=== PATIENT | female | born 1975 | race Caucasian/White ===

== ENCOUNTER 2021-11-11 15:09 | Outpatient (CLI) | payer OTHER, SELFPAY ==
--- NOTE | 2021-11-11 15:20 | CRLHL7_ITS ---
For Patients: As a result of the Cures Act, medical imaging exams and procedure reports are released immediately into your electronic medical record. You may view this report before your referring provider. If you have questions, please contact your health care provider. BILATERAL SCREENING MAMMOGRAM WITH COMPUTER-AIDED DETECTION AND TOMOSYNTHESIS TECHNIQUE: CC and MLO views were obtained. These mammographic images have been obtained using full-field digital technique. These mammographic images were interpreted with the benefit of computer-aided detection. Breast Tomosynthesis was used in this interpretation. COMPARISON FILM: 10/30/20, 10/01/19, 11/03/17. FINDINGS: The breasts are heterogeneously dense, which may obscure small masses IMPRESSION: There is no radiographic evidence for malignancy. ASSESSMENT: BI-RADS Category 1: Negative RECOMMENDATION: Routine screening mammogram in 1 year. A lay language report of this examination will be provided to the patient. Anoop Malone M.D. Diagnostic Radiologist [email or web address] OSEI/[email or web address] / be/Dictated by: Anoop Malone MD @ 11/12/2021 8:18:00 AM (Electronically Signed)
== END 2021-11-11 15:10 | disposition home or self-care (01) ==
LOC: MAMMO 15:10
PROVIDERS: PCP Internal Medicine; Visit Provider Registered Nurse
DX: Z12.31 Encounter for screening mammogram for malignant neoplasm of breast (principal); R92.2 Inconclusive mammogram
CPT/HCPCS: 77063; 77067

== ENCOUNTER 2021-11-23 10:40 | Outpatient (CLI) | payer OTHER, SELFPAY ==
--- NOTE | 2021-11-23 12:26 | W.ANESCHARGE ---
Anesthesia Charges Start Date/Time Anesthesia Start Date: 11/23/21 Anesthesia Start Time: 11:45 Stop Date/Time Anesthesia Stop Date: 11/23/21 Anesthesia Stop Time: 12:26 Summary Emergency: No
== END 2021-11-23 10:41 | disposition home or self-care (01) ==
LOC: OP CLINIC 10:41
PROVIDERS: PCP Internal Medicine; Visit Provider Surgery
DX: R19.5 Other fecal abnormalities (principal); K63.5 Polyp of colon; K62.1 Rectal polyp
CPT/HCPCS: 00811; 45385; 88305; J2704

== ENCOUNTER 2022-04-20 07:33 | Outpatient (CLI) | payer OTHER, SELFPAY | END 2022-04-20 07:34 | disposition home or self-care (01) | LOC: NFLDREF 04-22 13:43 | PROVIDERS: PCP Internal Medicine; Referring Provider Internal Medicine; Visit Provider Internal Medicine | DX: Z13.6 Encounter for screening for cardiovascular disorders (principal) | CPT/HCPCS: 80061 ==

== ENCOUNTER 2022-06-15 08:02 | Outpatient (CLI) | payer OTHER, SELFPAY ==
--- NOTE | 2022-06-15 08:15 | CRLHL7_ITS ---
For Patients: As a result of the Century Cures Act, medical imaging exams and procedure reports are released immediately into your electronic medical record. You may view this report before your referring provider. If you have questions, please contact your health care provider. Technique: Double-contrast upper GI performed after the uneventful administration of effervescent crystals and thick barium followed by thin barium. Fluoroscopy time 1 minute 26 seconds. Indication: Gastroesophageal REFLUX DISEASE Comparison: None. Findings: Swallowing mechanism: Normal. Esophageal motility: Slightly diminished. Gastroesophageal reflux: None. Hernia: None. Esophagus, stomach and duodenal bulb mucosa: Normal mucosa. No stricture or mass. There is the slight suspicion of decreased gastric emptying. Impression: No reflux observed. Slightly diminished esophageal and gastric motility. One could consider a gastric emptying study for further evaluation. Dictated by Anoop Malone MD @ 06/15/2022 9:45:15 AM (Electronically Signed)
== END 2022-06-15 08:03 | disposition home or self-care (01) ==
LOC: RAD 08:03
PROVIDERS: PCP Internal Medicine; Visit Provider Internal Medicine Gastroenterology
DX: K21.9 Gastro-esophageal reflux disease without esophagitis (principal); R07.0 Pain in throat
CPT/HCPCS: 74246

== ENCOUNTER 2022-11-16 07:30 | Outpatient (CLI) | payer OTHER, SELFPAY ==
--- NOTE | 2022-11-16 07:45 | CRLHL7_ITS ---
For Patients: As a result of the Century Cures Act, medical imaging exams and procedure reports are released immediately into your electronic medical record. You may view this report before your referring provider. If you have questions, please contact your health care provider. BILATERAL SCREENING MAMMOGRAM WITH COMPUTER-AIDED DETECTION AND TOMOSYNTHESIS TECHNIQUE: CC and MLO views were obtained. These mammographic images have been obtained using full-field digital technique. These mammographic images were interpreted with the benefit of computer-aided detection. Breast Tomosynthesis was used in this interpretation. COMPARISON FILM: 11/11/21, 10/30/20, 10/01/19. FINDINGS: The breasts are heterogeneously dense, which may obscure small masses IMPRESSION: There is no radiographic evidence for malignancy. ASSESSMENT: BI-RADS Category 1: Negative RECOMMENDATION: Routine screening mammogram in 1 year. A lay language report of this examination will be provided to the patient. Anoop Malone M.D. Diagnostic Radiologist [email or web address] RODRI/Dictated by: Anoop Malone MD @ 11/16/2022 8:27:00 AM (Electronically Signed)
== END 2022-11-16 07:31 | disposition home or self-care (01) ==
PROVIDERS: PCP Internal Medicine; Visit Provider Internal Medicine
DX: Z12.31 Encounter for screening mammogram for malignant neoplasm of breast (principal); R92.2 Inconclusive mammogram
CPT/HCPCS: 77063; 77067

== ENCOUNTER 2023-04-25 07:40 | Outpatient (CLI) | payer OTHER, SELFPAY | END 2023-04-25 07:41 | disposition home or self-care (01) | LOC: NFLDREF 04-26 07:13 | PROVIDERS: PCP Internal Medicine; Referring Provider Internal Medicine; Visit Provider Internal Medicine | DX: Z13.220 Encounter for screening for lipoid disorders (principal); Z13.1 Encounter for screening for diabetes mellitus; Z13.29 Encounter for screening for other suspected endocrine disorder | CPT/HCPCS: 80061; 82947; 84443 ==

== ENCOUNTER 2023-05-09 07:55 | Outpatient (CLI) | payer OTHER, SELFPAY ==
--- NOTE | 2023-05-09 08:54 | W.ANESCHARGE ---
Anesthesia Charges Start Date/Time Anesthesia Start Date: 05/09/23 Anesthesia Start Time: 09:11 Stop Date/Time Anesthesia Stop Date: 05/09/23 Anesthesia Stop Time: 09:33
--- NOTE | 2023-05-09 09:39 | W.ANESCHARGE ---
Anesthesia Charges Start Date/Time Anesthesia Start Date: 05/09/23 Anesthesia Start Time: 09:11 Stop Date/Time Anesthesia Stop Date: 05/09/23 Anesthesia Stop Time: 09:33
== END 2023-05-09 07:56 | disposition home or self-care (01) ==
LOC: OP CLINIC 07:56
PROVIDERS: PCP Internal Medicine; Visit Provider Surgery
DX: R19.8 Other specified symptoms and signs involving the digestive system and abdomen (principal)
CPT/HCPCS: 00731; 43239; 88305; 94640; J1100; J2704

== ENCOUNTER 2023-11-20 14:53 | Outpatient (CLI) | payer OTHER, SELFPAY ==
--- OUTSIDE RECORDS SUMMARY | 2023-11-20 14:56 | XMS_ITS | Clinical Summary ---
Author Organization [employer] [facility] Address [place], [place] [address] Care Team Providers Care Shake Backboard Notcher Name Role Phone Kandis Weiner MD Primary Care Provider [phone]- [phone] Allergies Active Allergy Reactions Criticality Noted Date Comments Codeine Vomiting 06/10/2022 Medications Medication Sig Dispensed Refills Start Date End Date Status famotidine (PEPCID) 20 mg tablet Take 1 Tablet (20 mg) by mouth two times daily. 0 06/10/2022 Active albuterol HFA (PRO-AIR; VENTOLIN; PROVENTIL) 90 mcg/actuation inhaler INHALE 2 PUFFS BY MOUTH EVERY 4 HOURS NEEDED FOR ASTHMA. 04/27/2022 Active Flovent HFA 110 mcg/actuation inhaler Inhale 2 Puffs by mouth two times daily. 04/27/2022 Active Sprintec 0.25-35 mg-mcg tablet Take 1 Tablet by mouth once daily. 04/19/2022 Active fluticasone propionate (FLOVENT) 110 mcg/Actuation inhaler Inhale by mouth two times daily. 12 g 06/10/2022 Active fexofenadine (REINA) 180 mg tablet Take 180 mg by mouth once daily with a meal. Do not crush or chew. 0 06/10/2022 Active multivitamin capsule Take 1 Capsule by mouth once daily. 0 06/10/2022 Active omeprazole (PRILOSEC) 40 mg Delayed-Release capsuleIndications:Ga stroesophageal reflux disease, unspecified whether esophagitis present,Throat pain Take 1 Capsule (40 mg) by mouth once daily. 30 Capsule 11 06/10/2022 Active Social History Tobacco Use Types Packs/Day Years Used Date Smoking Tobacco: Never Smokeless Tobacco: Never Tobacco Cessation:Counseling Given: Yes Social Connections Answer Date Recorded Frequency of Communication with Friends and Fami ly Not on file 06/10/2022 Sex and Gender Information Value Date Recorded Sex Assigned at Not on file Gender Identity Not on file Sexual Orientation Not on file Obstetrics History Last Filed Vital Signs Vital Sign Reading Time Taken Comments Blood Pressure 133/79 06/10/2022 3:39 PM CDT Pulse 72 06/10/2022 3:39 PM CDT Temperature - - Respiratory Rate - - Oxygen Saturation 98% 06/10/2022 3:39 PM CDT Inhaled Oxygen Concentration - - Weight 71.9 kg (158 lb 9.6 oz) 06/10/2022 3:39 P M CDT Height - - Body Mass Index - - Plan of Treatment Health Maintenance Due Date Last Done Comments Tdap 09/21/1987 Depression screening for age 12+ 1988 HIV for age 15-65 09/21/1991 BMI (ht and wt on same day) for age 18+ 1994 Hepatitis C screening for age 18-79 1994 Tetanus booster 1996 Colonoscopy through age 75 2021 Lipids for age 45-75 2021 Mammogram for age 45-75 2021 COVID-19 vaccine series ( season) 2023 Influenza for age 9-49 10/15/2023 Pap test for age 21-65 05/04/2026 , 05/05/2023, 07/20/2018, Additional history exists Pneumococcal series for age 6-64 Aged Out No longer eligible based on patient's age to complete this topic Procedures Procedure Name Priority Date/Time Associated Diagnosis Comments HPV HIGH RISK Routine 05/05/2023 11:40 AM CDT from Last 3 Months or Most Recently Relevant to Health Maintenance Results * HPV HIGH RISK (05/05/2023 11:40 AM CDT) TYPE 16 Negative Negative 05/10/2023 1:48 PM CDT [facility] TYPE 18 Negative Negative 05/10/2023 1:48 PM CDT [facility] OTHER HIGH RISK TYPES Negative Negative 05/10/2023 1:48 PM CDT [facility] Other (Cervical) 05/05/2023 11:40 AM CDT 05/09/2023 8:24 AM CDT Narrative [facility] - 05/10/2023 1:48 PM CDT HPV types 16, 18, 31, 33, 35, 39, 45, 51, 52, 56, 58, 59, 66 and 68 DNA were undetectable or below the pre-set threshold. Methodology: Ke Stan 4800 HPV Test Teetee Joshi PHOTOGRAPHIC LITHOGRAPHER MICROBIOLOGY [facility] [address] [place] [address], from Last 3 Months or Most Recently Relevant to Health Maintenance Care Teams Shake Backboard Notcher Relationship Specialty Start Date End Date Kandis Weiner MD [address] [place] [address] PCP - General Internal Medicine 06/10/22
--- NOTE | 2023-11-20 15:00 | CRLHL7_ITS ---
For Patients: As a result of the Century Cures Act, medical imaging exams and procedure reports are released immediately into your electronic medical record. You may view this report before your referring provider. If you have questions, please contact your health care provider. BILATERAL SCREENING MAMMOGRAM WITH COMPUTER-AIDED DETECTION AND TOMOSYNTHESIS TECHNIQUE: CC and MLO views were obtained. These mammographic images have been obtained using full-field digital technique. These mammographic images were interpreted with the benefit of computer-aided detection. Breast Tomosynthesis was used in this interpretation. COMPARISON FILM: 11/16/22, 11/11/21, 10/30/20. FINDINGS: The breasts are heterogeneously dense, which may obscure small masses IMPRESSION: There is no radiographic evidence for malignancy. ASSESSMENT: BI-RADS Category 1: Negative RECOMMENDATION: Routine screening mammogram in 1 year. A lay language report of this examination will be provided to the patient. Anoop Malone M.D. Diagnostic Radiologist [email or web address] OSEI/[email or web address] Transcribed: 1:42 p.eliot sepulveda/Dictated by: Anoop Malone MD @ 11/21/2023 10:16:00 AM (Electronically Signed)
== END 2023-11-20 14:54 | disposition home or self-care (01) ==
LOC: MAMMO 14:54
PROVIDERS: PCP Internal Medicine; Visit Provider Internal Medicine
DX: Z12.31 Encounter for screening mammogram for malignant neoplasm of breast (principal); R92.333 Mammographic heterogeneous density, bilateral breasts
CPT/HCPCS: 77063; 77067

== ENCOUNTER 2024-01-08 14:29 | Outpatient (CLI) | payer OTHER, SELFPAY ==
--- OUTSIDE RECORDS SUMMARY | 2024-01-08 14:39 | XMS_ITS | Clinical Summary ---
Author Organization [employer] [facility] Address [place], [place] [address] Care Team Providers Care Photograph Editor Name Role Phone Kandis Weiner MD Primary Care Provider +1- [phone] Allergies Active Allergy Reactions Criticality Noted Date [...] 16 Negative Negative 05/10/2023 1:48 PM CDT [facility] TYPE 18 Negative Negative 05/10/2023 1:48 PM CDT [facility] OTHER HIGH RISK TYPES Negative Negative 05/10/2023 1:48 PM CDT [facility] Other (Cervical) 05/05/2023 11:40 AM CDT 05/09/2023 8:24 AM CDT Narrative [facility] - 05/10/2023 1:48 PM CDT HPV types 16, 18, 31, 33, 35, 39, 45, 51, 52, 56, 58, 59, 66 and 68 DNA were undetectable or below the pre-set threshold. Methodology: Ke Stan 4800 HPV Test Teetee Joshi KETTLE FRY COOK OPERATOR MICROBIOLOGY [facility] [address] [place] [address], from Last 3 Months or Most Recently Relevant to Health Maintenance Care Teams Photograph Editor Relationship Specialty Start Date End Date Kandis Weiner MD [address] [place] [address] PCP - General Internal Medicine 06/10/22
== END 2024-01-08 14:30 | disposition home or self-care (01) ==
PROVIDERS: PCP Internal Medicine; Visit Provider Internal Medicine
DX: L65.9 Nonscarring hair loss, unspecified (principal)
CPT/HCPCS: 82728; 84443

== ENCOUNTER 2024-06-27 10:38 | Outpatient (CLI) | payer OTHER, SELFPAY | END 2024-06-27 10:39 | disposition home or self-care (01) | LOC: NFLDREF 07-04 22:09 | PROVIDERS: PCP Internal Medicine; Referring Provider Internal Medicine; Visit Provider Internal Medicine | DX: R10.9 Unspecified abdominal pain (principal) | CPT/HCPCS: 87086 ==

== ENCOUNTER 2024-06-27 12:44 | Outpatient (CLI) | payer OTHER, SELFPAY ==
--- NOTE | 2024-06-27 13:00 | CRLHL7_ITS ---
For Patients: As a result of the Century Cures Act, medical imaging exams and procedure reports are released immediately into your electronic medical record. You may view this report before your referring provider. If you have questions, please contact your health care provider. INDICATION: ABD PAIN HX STONES TECHNIQUE: A CT volumetric acquisition was performed of the abdomen and pelvis without intravenous contrast. Please note that all CT scans at this facility use dose modulation, iterative reconstruction, and/or weight-based dosing when appropriate to reduce radiation dose to as low as reasonably achievable. COMPARISON: 09/15/2020 FINDINGS: The CT images demonstrate normal aeration of the lung bases. There is no evidence of pleural or pericardial fluid. Within the abdomen the liver appears normal in size and density. The spleen is of normal size. There is no evidence of mass effect or inflammation within the pancreas. The gallbladder and bile ducts appear normal. The adrenal glands have normal morphology. The kidneys are of normal size and there is no evidence of a calculus within either kidney or ureter and there is no evidence of hydronephrosis. The small and large bowel loops appear unremarkable and there are no abnormalities noted within the small bowel mesentery or greater omentum. Small incidental duodenal diverticulum is present. The aorta and IVC appear normal. There is no evidence of retroperitoneal lymphadenopathy. The uterus and ovaries appear normal. 2.4 cm umbilical hernia containing fat is unchanged. Normal appendix. IMPRESSION: Unremarkable CT of the abdomen and pelvis. No evidence of renal, ureteral or bladder stone. Please note that all CT scans at this facility use dose modulation, iterative reconstruction, and/or weight-based dosing when appropriate to reduce radiation dose to as low as reasonably achievable. Dictated by Anoop Malone MD @ 06/28/2024 12:42:09 PM (Electronically Signed)
== END 2024-06-27 12:45 | disposition home or self-care (01) ==
LOC: CT 12:45
PROVIDERS: PCP Internal Medicine; Visit Provider Internal Medicine
DX: R10.9 Unspecified abdominal pain (principal); R91.8 Other nonspecific abnormal finding of lung field; N28.1 Cyst of kidney, acquired
CPT/HCPCS: 74176

== ENCOUNTER 2024-07-01 11:32 | Outpatient (CLI) | payer OTHER, SELFPAY | END 2024-07-01 11:33 | disposition home or self-care (01) | LOC: NFLDREF 11:36 | PROVIDERS: PCP Internal Medicine; Visit Provider Family Medicine | DX: N39.0 Urinary tract infection, site not specified (principal); N20.0 Calculus of kidney; B95.7 Other staphylococcus as the cause of diseases classified elsewhere | CPT/HCPCS: 82365; 87086; 87186 ==

== ENCOUNTER 2024-07-10 13:48 | Outpatient (CLI) | payer OTHER, SELFPAY ==
--- NOTE | 2024-07-10 14:34 | CRLHL7_ITS ---
For Patients: As a result of the Century Cures Act, medical imaging exams and procedure reports are released immediately into your electronic medical record. You may view this report before your referring provider. If you have questions, please contact your health care provider. INDICATION: Unspecified abdominal pain COMPARISON: CT 06/27/2024 TECHNIQUE: Real time fan scale imaging and color Doppler analysis was performed of the right upper quadrant. FINDINGS: The patient`s liver is of normal size and has mildly increased echogenicity. There is a normal appearance of the hepatic IVC and proximal abdominal aorta. There is no evidence of ascites. The gallbladder is of normal size and there is no evidence of intraluminal stones or sludge. The gallbladder wall measures 3 mm in thickness. The common bile duct is of normal size and measures 4 mm in diameter at the level of the kati hepatis. The visualized pancreas appears normal. There is no evidence of a stone or hydronephrosis within the right kidney. The right kidney measures 9.9 cm in length. IMPRESSION: Mild diffuse hepatic steatosis. Remainder unremarkable. Dictated by Anoop Malone MD @ 07/10/2024 4:00:43 PM (Electronically Signed)
== END 2024-07-10 13:49 | disposition home or self-care (01) ==
LOC: US 13:48
PROVIDERS: PCP Internal Medicine; Visit Provider Internal Medicine
DX: R10.9 Unspecified abdominal pain (principal); K76.0 Fatty (change of) liver, not elsewhere classified
CPT/HCPCS: 76705

== ENCOUNTER 2024-07-23 11:46 | Outpatient (CLI) | payer OTHER, SELFPAY ==
--- NOTE | 2024-07-23 12:00 | CRLHL7_ITS ---
For Patients: As a result of the Century Cures Act, medical imaging exams and procedure reports are released immediately into your electronic medical record. You may view this report before your referring provider. If you have questions, please contact your health care provider. INDICATION: unspecified abdominal pain TECHNIQUE: 7.4 mCi Tc-99m Mebrofenin was injected intravenously. Images of the liver, gallbladder and abdomen were obtained for 60 minutes. 1.5 mcg Kinevac was then administered and imaging continued for an additional 50 minutes. COMPARISON: Ultrasound 07/10/2024, CT 06/27/2024 FINDINGS: There is good uptake of activity by the hepatocytes. There is visualization of the biliary tree, gallbladder and small bowel. In response to CCK administration, there is a normal gallbladder ejection fraction of 33 percent. IMPRESSION: 1. Normal study. There is no evidence of acute or chronic cholecystitis. 2. Normal gallbladder ejection fraction of 33 percent. Dictated by Anoop Malone MD @ 07/24/2024 9:49:31 AM (Electronically Signed)
== END 2024-07-23 11:47 | disposition home or self-care (01) ==
LOC: NM 11:47
PROVIDERS: PCP Internal Medicine; Visit Provider Internal Medicine
DX: R10.9 Unspecified abdominal pain (principal)
CPT/HCPCS: 78227; A9537; J2805

== ENCOUNTER 2024-07-30 11:05 | Outpatient (CLI) | payer OTHER, SELFPAY | END 2024-07-30 11:06 | disposition home or self-care (01) | LOC: NFLDREF 11:07 | PROVIDERS: PCP Internal Medicine; Visit Provider Internal Medicine | DX: R10.9 Unspecified abdominal pain (principal) | CPT/HCPCS: 80053 ==

== ENCOUNTER 2024-11-21 14:28 | Outpatient (CLI) | payer OTHER, SELFPAY ==
--- NOTE | 2024-11-21 14:40 | CRLHL7_ITS ---
For Patients: As a result of the Century Cures Act, medical imaging exams and procedure reports are released immediately into your electronic medical record. You may view this report before your referring provider. If you have questions, please contact your health care provider. INDICATION: BILATERAL SCREENING MAMMOGRAM, ASYMPTOMATIC 49 Y/O FEMALE COMPARISON: 11/20/2023, 11/16/2022, 11/11/2022 TECHNIQUE: Digital mammogram in CC and MLO projections including computer-aided detection (CAD) and tomosynthesis. BREAST COMPOSITION: The breasts are heterogeneously dense, which may obscure small masses. FINDINGS: No suspicious findings. ASSESSMENT: BI-RADS 2 Benign RECOMMENDATION: Annual screening mammogram. A lay language report of this examination will be provided to the patient. Dictated by: Anoop Malone MD @ 11/22/2024 09:39:00 (Electronically Signed)
== END 2024-11-21 14:29 | disposition home or self-care (01) ==
LOC: MAMMO 14:28
PROVIDERS: PCP Internal Medicine; Visit Provider Internal Medicine
DX: Z12.31 Encounter for screening mammogram for malignant neoplasm of breast (principal); R92.333 Mammographic heterogeneous density, bilateral breasts
CPT/HCPCS: 77063; 77067

== ENCOUNTER 2024-12-24 12:03 | Outpatient (CLI) | payer OTHER, SELFPAY ==
[2024-12-24 15:43] LABS: Bacterial Vaginosis* Negative (Negative); Candida glab/krus NOT DETECTED (No Detected)
[2024-12-24 16:13] LABS: Chlamydia DNA Amplified* NOT DETECTED (No Detected); GC DNA Amplified* NOT DETECTED (No Detected)
== END 2024-12-24 12:04 | disposition home or self-care (01) ==
PROVIDERS: PCP Internal Medicine; Visit Provider Obstetrics & Gynecology
DX: R10.20 Pelvic and perineal pain unspecified side (principal)
CPT/HCPCS: 81513; 87481; 87491; 87591; 87661

== ENCOUNTER 2024-12-31 09:00 | Outpatient (CLI) | payer OTHER, SELFPAY ==
--- NOTE | 2024-12-31 09:15 | CRLHL7_ITS ---
For Patients: As a result of the Century Cures Act, medical imaging exams and procedure reports are released immediately into your electronic medical record. You may view this report before your referring provider. If you have questions, please contact your health care provider. CLINICAL HISTORY: pelvic pain COMPARISON: 07/10/2024 TECHNIQUE: 2D fan-scale ultrasound. In addition, color Doppler and spectral Doppler analysis was performed of the pelvis using a transabdominal and transvaginal approach. Transvaginal imaging performed to better visualize the endometrial stripe and ovaries. FINDINGS: The uterus measures 6.8 x 4.0 x 4.6 cm. No uterine fibroid. The endometrial lining measures 6.9 mm in thickness. The right ovary measures 2.2 x 1.3 x 1.6 cm in size and the left ovary measures 2.3 x 1.3 x 1.5 cm. The ovaries demonstrate normal arterial and venous blood flow on color Doppler and spectral Doppler analysis. There are no suspicious fluid collections within the cul-de-sac. Dominant follicle right ovary measures 1 cm. IMPRESSION: Dominant follicle right ovary measures 1 cm. No evidence of torsion or excess pelvic free fluid. Dictated by Anoop Malone MD @ 12/31/2024 11:51:07 AM (Electronically Signed)
== END 2024-12-31 09:01 | disposition home or self-care (01) ==
LOC: US 09:01
PROVIDERS: PCP Internal Medicine; Visit Provider Obstetrics & Gynecology
DX: R10.20 Pelvic and perineal pain unspecified side (principal); N83.01 Follicular cyst of right ovary
CPT/HCPCS: 76830; 76856; 93976

== ENCOUNTER 2025-01-02 13:44 | Outpatient (CLI) | payer OTHER, SELFPAY ==
--- NOTE | 2025-01-02 14:00 | CRLHL7_ITS ---
For Patients: As a result of the Century Cures Act, medical imaging exams and procedure reports are released immediately into your electronic medical record. You may view this report before your referring provider. If you have questions, please contact your health care provider. INDICATION: Pulmonary nodule. TECHNIQUE: CT chest without contrast. COMPARISON: CT abdomen and pelvis 01/02/2025 and 06/27/2024. FINDINGS: Lungs, pleura, and airways: Stable since 06/27/2024 4-6 mm subpleural right lower lobe pulmonary nodules (series 3 images [id number] and series 5 images 80-91). No new or enlarging pulmonary nodules. No focal consolidation. Left lower lobe and lingular scarring/atelectasis. No pleural effusions, pleural thickening, or pneumothorax. Airways are clear. No endobronchial lesion. No bronchiectasis. Heart and vasculature: Heart size is normal. No pericardial effusion. Thoracic aorta and pulmonary arteries are normal in caliber. Three vessel aortic arch. coronary atherosclerosis. Lymph nodes/mediastinum: No mediastinal, hilar, or axillary adenopathy. Visualized portions of the thyroid are within normal limits. Soft tissues: Normal. Upper abdomen: No significant findings. Bones: Chronic T6 and T7 anterior wedge compression deformities. No worrisome osseous lesion. IMPRESSION: 1. Stable since 06/27/2024 4-6 mm subpleural right lower lobe nodules. Recommend additional six-month follow-up chest CT to document 1 year stability. 2. No new or enlarging pulmonary nodules. Please note that all CT scans at this facility use dose modulation, iterative reconstruction, and/or weight-based dosing when appropriate to reduce radiation dose to as low as reasonably achievable. Dictated by Louis Deluna MD @ 01/03/2025 8:59:54 AM (Electronically Signed)
== END 2025-01-02 13:45 | disposition home or self-care (01) ==
LOC: CT 13:45
PROVIDERS: PCP Internal Medicine; Visit Provider Family Medicine
DX: R91.1 Solitary pulmonary nodule (principal)
CPT/HCPCS: 71250

== ENCOUNTER 2025-01-02 14:10 | Outpatient (CLI) | payer OTHER, SELFPAY ==
--- NOTE | 2025-01-02 14:30 | CRLHL7_ITS ---
For Patients: As a result of the Century Cures Act, medical imaging exams and procedure reports are released immediately into your electronic medical record. You may view this report before your referring provider. If you have questions, please contact your health care provider. INDICATION: Right lower abdominal pain. TECHNIQUE: CT abdomen and pelvis following administration of 79 cc Isovue 370 IV contrast. COMPARISON: CT abdomen and pelvis 06/27/2024, chest CT 01/02/2025, pelvic ultrasound 12/31/2024. FINDINGS: Lower chest: No pulmonary infiltrate, pleural effusion, or pneumothorax. Base of the heart, incompletely imaged distal thoracic esophagus, and incompletely imaged descending thoracic aorta are normal. Liver: No worrisome hepatic lesion. Focal fatty infiltration adjacent to the falciform ligament. Non-cirrhotic morphology. Gallbladder and bile ducts: No intrahepatic or extrahepatic biliary duct dilatation. Gallbladder is within normal limits. No visible gallstones. Pancreas: No focal masses. No pancreatic duct dilatation. No peripancreatic inflammation. Spleen: Normal in size. No masses. Adrenal glands: Within normal limits. Kidneys: Kidneys enhance symmetrically. No hydronephrosis or hydroureter. No renal calculi. No worrisome renal lesions. 1 cm simple cyst exophytic off the left kidney inferior pole. GI tract: No abnormal wall thickening or visualized mass. No finding to suggest small or large bowel obstruction. Normal appendix. Vasculature: No aortoiliac atherosclerosis. No abdominal aortic aneurysm. Patent portal venous system. Lymph nodes: No lymphadenopathy. Peritoneum/Retroperitoneum: No free air or significant free fluid. Pelvic organs/Bladder: Normal urinary bladder. Normal uterus and adnexal structures. Bones: No acute fractures. No worrisome osseous lesions. No degenerative changes of the spine. Soft tissues: Fat containing umbilical hernia. No subcutaneous or intramuscular collection or mass. IMPRESSION: No acute or significant abdominopelvic abnormalities. No findings to account for patient`s clinical symptoms. Please note that all CT scans at this facility use dose modulation, iterative reconstruction, and/or weight-based dosing when appropriate to reduce radiation dose to as low as reasonably achievable. Dictated by Louis Deluna MD @ 01/03/2025 8:33:17 AM (Electronically Signed)
== END 2025-01-02 14:11 | disposition home or self-care (01) ==
LOC: CT 14:10
PROVIDERS: PCP Internal Medicine; Visit Provider Internal Medicine
DX: R10.31 Right lower quadrant pain (principal); K58.0 Irritable bowel syndrome with diarrhea
CPT/HCPCS: 74177; Q9967